=== PATIENT | female | born 1945 ===

== ENCOUNTER 2025-09-15 18:10 | Emergency (ER) | payer OTHER ==
[~2025-09-15] VITALS: Ht 177.8 cm; Wt 87.5 kg
[2025-09-15] MEDS ORDERED: OZEMPIC2 MG/0.75 SC ×2 (18:40→19:02)
[2025-09-15] MEDS ORDERED: TIOT18 INH ×2 (18:40→19:02)
[2025-09-15] MEDS ORDERED: GABA300 PO ×2 (18:40→19:02)
[2025-09-15] MEDS ORDERED: EUTHYROX200 MCG PO ×2 (18:40→19:02)
[2025-09-15] MEDS ORDERED: TOLTERODINE TART4 MG PO ×2 (18:40→19:02)
[2025-09-15] MEDS ORDERED: BANOPHEN50 M1 PO ×2 (18:40→19:02)
== END 2025-09-15 19:10 | disposition home or self-care (01) ==
LOC: ER 18:10
DX: Z76.0 Encounter for issue of repeat prescription (principal); E03.9 Hypothyroidism, unspecified
CPT/HCPCS: 99281

== ENCOUNTER 2025-10-05 20:29 | Emergency (ER) | payer OTHER ==
[~2025-10-05] VITALS: Ht 175.3 cm; Wt 87.5 kg
[~2025-10-05 20:29] MED LIST: BANOPHEN50 M1 PO; EUTHYROX200 MCG PO; GABA300 PO; OZEMPIC2 MG/0.75 SC; TIOT18 INH; TOLTERODINE TART4 MG PO
[2025-10-05] MEDS ORDERED: EUTHYROX200 MCG PO (20:37)
[2025-10-05] MEDS ORDERED: GABA300 PO (20:37)
[2025-10-05] MEDS ORDERED: TOLTERODINE TART4 MG PO (20:37)
[2025-10-05] MEDS ORDERED: BANOPHEN50 M1 PO (20:37)
== END 2025-10-05 21:02 | disposition home or self-care (01) ==
LOC: ER 20:29
DX: Z76.0 Encounter for issue of repeat prescription (principal); E03.9 Hypothyroidism, unspecified; J44.9 Chronic obstructive pulmonary disease, unspecified; Z79.890 Hormone replacement therapy; Z79.899 Other long term (current) drug therapy
CPT/HCPCS: 99281